=== PATIENT | female | born 1965 | race Caucasian/White ===

== ENCOUNTER → 2022-01-29 | Outpatient (CLI) | payer OTHER ==
[~2022-01-29] MED LIST: CALAN 80MG TABL80 MG PO; CYMBALTA 30 MG30 MG PO; DICLOFENAC SODI50 MG PO; GLIPIZIDE10 MG PO; HYDROCHLOROTHIA25 MG PO; LANTUS SOL100 UNIT/1 SQ; MELOXICAM7.5 MG PO
[2022-01-29 11:17] LABS: HEMOGLOBIN 13.6 gm/dl (12.3-15.3); RED BLOOD COUNT 4.56 M/UL (4.00-5.10); WHITE BLOOD COUNT 10.2 K/UL (4.5-11.0)
[2022-01-29 11:41] LABS: BUN/CREATININE RATIO 19 (0-10)
== END ==
LOC: EDSTATUS 10:00 → OPSV2 10:00
PROVIDERS: Orthopaedic Surgery
DX: Z01.818 Encounter for other preprocedural examination (principal); M17.11 Unilateral primary osteoarthritis, right knee
CPT/HCPCS: 80048; 83036; 85025; 93005

== ENCOUNTER 2022-02-14 06:48 | Day surgery (SDC) | payer OTHER ==
[~2022-02-14] VITALS: Ht 177.8 cm; Wt 104.3 kg
[2022-02-14 07:42] LABS: BUN/CREATININE RATIO 20 (0-10)
[2022-02-15] MEDS ORDERED: PERCOCET 7.5-31 EACH PO (07:51)
[2022-02-15] MEDS ORDERED: ASPIR-TRIN325 MG PO (07:51)
== END 2022-02-15 11:34 | disposition home or self-care (01) ==
LOC: OR 06:48 → CCU 13:50 → OR 18:45
PROVIDERS: Orthopaedic Surgery
DX: M17.11 Unilateral primary osteoarthritis, right knee (principal); G89.18 Other acute postprocedural pain; I10 Essential (primary) hypertension; E78.00 Pure hypercholesterolemia, unspecified; E11.9 Type 2 diabetes mellitus without complications; Z87.891 Personal history of nicotine dependence; Z79.4 Long term (current) use of insulin; Z79.899 Other long term (current) drug therapy
CPT/HCPCS: 73560; 76000; 80048; 82962; 86850; 86900; 86901; 97116; 97116-GP-CQ; 97162; 97166; 97530-GP-CQ; C1713; C1776; J0690; J1100; J1170; J1200; J1885; J2001; J2250; J2274; J2405; J2704; J2710; J2795; J3010; J3475